=== PATIENT | female | born 1960 | race Caucasian/White ===

== ENCOUNTER 2016-07-23 00:11 | Emergency (ER) | payer BC, SELFPAY ==
[~2016-07-23 00:11] MED LIST: ACETAMINOPHEN325 M2 PO; AMILORIDE HCL5 MG PO; ATORVASTATIN CA10 MG PO; B COMPLETE1 EACH PO; COREG6.25 M1 PO; CRESTOR10 MG PO; GLUCOPHAGE500 MG PO; JANUMET 50-1,01 EACH PO; LISINOPRIL10 MG PO; LOPRESSOR50 MG PO; LORAZEPAM1 M1 PO; METOPROLOL TART50 MG PO; MUCINEX600 M1; MUCINEX600 MG PO; MULTIVITAMIN1 TAB PO; NORVASC5 M2 PO; NORVASC5 MG PO; OMEPRAZOLE20 M2 PO; OMEPRAZOLE20 M3 PO; PAXIL40 M1 PO; PREMPRO 0.3 MG1 EACH PO; PRINIVIL10 M1 PO; SPIRONOLACTONE25 MG PO; TRAMADOL HCL50 M2 PO; TRICOR145 M1 PO; TRIGLYCERIDE MED; TRILIPIX135 M1 PO; TYLENOL325 M1 PO; XANAX0.25 MG PO; XANAX1 MG PO
[2016-07-23] MEDS ORDERED: ALDACTONE25 M1 PO (01:31)
[2016-07-23] MEDS ORDERED: KLOR-CON M2020 ME1 PO (01:32)
[2016-07-23 02:07] LABS: BASO % 0.4 % (0-2); BASO ABSOLUTE COUNT 0.1 tho/cmm (0.0-0.2); EOS % 2.8 % (0-7); EOSINOPHIL ABSOLUTE COUNT 0.5 tho/cmm (0.0-0.7); HCT-HEMATOCRIT 41.6 % (34.0-49.0); HGB-HEMOGLOBIN 13.8 gm/dl (12.0-15.5); IMMATURE GRANULOCYTES ABSOLUTE 0.11 tho/cmm (0-0.03); IMMATURE GRANULOCYTES PERCENT 0.7 % (0-0.3); LYMPH % 23.5 % (20-45); LYMPH ABSOLUTE COUNT 3.9 tho/cmm (0.8-4.5); MCH (MEAN CORPUSCULAR HGB) 28.9 pg (28.0-32.0); MCHC MEAN CORPUSCULAR HGB CONC 33.2 % (32.0-36.0); MEAN PLATELET VOLUME 11.7 cmc (9.4-12.4); MONO % 7.6 % (0-12); MONOCYTE ABSOLUTE COUNT 1.3 tho/cmm (0.0-1.2); NEUTROPHIL ABSOLUTE COUNT 10.8 tho/cmm (1.6-8.0); NEUTROPHIL-AUTOMATED 10.8 tho/cmm (1.6-8.0); PLATELET COUNT 320 tho/cmm (150-450); RED BLOOD COUNT 4.78 mil/cmm (4.00-5.20); RED CELL DISTRIBUTION WIDTH 13.6 % (12.4-16.4); WHITE BLOOD COUNT 16.7 tho/cmm (4.0-10.0)
[2016-07-23 02:26] LABS: ALB/GLOB RATIO 0.7 (0.8-2.0); ALBUMIN 3.3 g/dl (3.5-5.0); ALKALINE PHOSPHATASE 41 U/L (33-138); ALT/SGPT 13 U/L (12-78); BILIRUBIN,TOTAL 0.4 mg/dl (0-1.5); BLOOD UREA NITROGEN 16 mg/dl (6-24); CALCIUM 8.9 mg/dl (8.5-10.5); CARBON DIOXIDE-VENOUS 20 mmol/L (22-32); CHLORIDE 109 mmol/l (96-110); CREATININE 0.94 mg/dl (0.50-1.10); GLUCOSE 158 mg/dL (70-110); LIPASE 205 U/L (73-393); SODIUM 137 mmol/L (135-145); eGFR VALUE FOR BLACK 79 mL/Min
[2016-07-23 02:34] LABS: ANION GAP 13 mmol/L (0-20); AST/SGOT 26 U/L (10-40)
[2016-07-23 02:35] LABS: POTASSIUM 5.4 mmol/L (3.7-5.1)
[2016-07-23 04:33] LABS: URINE BILIRUBIN NEGATIVE (NEG); URINE BLOOD NEGATIVE (NEG); URINE GLUCOSE (UA) NEGATIVE (NEG); URINE KETONE NEGATIVE (NEG); URINE LEUKOCYTE ESTERASE NEGATIVE (NEG); URINE NITRITE NEGATIVE (NEG); URINE PROTEIN NEGATIVE (NEG)
[2016-07-23 04:53] LABS: URINE APPEARANCE CLEAR; URINE COLOR PALE YELLOW
[2016-07-23] MEDS ORDERED: FLAGYL500 M1 PO (05:04)
== END 2016-07-23 05:30 ==
LOC: EDMED 00:11
PROVIDERS: Emergency Medicine
DX: R19.7 Diarrhea, unspecified (principal); E87.5 Hyperkalemia; E11.9 Type 2 diabetes mellitus without complications; I10 Essential (primary) hypertension; E78.5 Hyperlipidemia, unspecified; Z98.890 Other specified postprocedural states; Z79.899 Other long term (current) drug therapy; F17.200 Nicotine dependence, unspecified, uncomplicated
CPT/HCPCS: J2405; J7030; Q9967